=== PATIENT | female | born 1980 | race Caucasian/White ===

== ENCOUNTER 2020-01-26 14:12 | Inpatient (IN) | payer OTHER ==
[2020-01-26 15:40] LABS: Absolute Lymphocytes (CBC) 1.1 K/uL (0.7-4.9); Basophils % 0.5 % (0-1.3); Hematocrit 41.7 % (36.0-45.0); MPV 10.1 fL (7.6-11.3)
[2020-01-26 16:02] LABS: Blood Morphology Comment NOT SEEN (NOT SEEN); Platelet Estimate INCR; Platelets, Giant PRESENT; Urine White Blood Cell Casts OK
[2020-01-26 16:05] LABS: ALT/SGPT 20 U/L (12-78); Alkaline Phosphatase 84 U/L (45-117); BUN Blood Urea Nitrogen 7 mg/dL (7-18); Bicarbonate 24 mmol/L (21-32); Bilirubin Direct < 0.1 mg/dL (0-0.2); Bilirubin Total 0.5 mg/dL (0.2-1.0); Glucose Level 102 mg/dL (74-106); Lipase 108 U/L (73-393); Protein, Total 9.6 g/dL (6.4-8.2); Sodium Level 134 mmol/L (136-145)
[2020-01-26] MEDS ORDERED: ONDANSETRON 4 MG/2 ML VIAL ONE (16:06)
[2020-01-26] MEDS ORDERED: MORPHINE 2 MG/ML SYR ONE ×2 (16:06→19:27)
[2020-01-26] MEDS ORDERED: NA CHLORIDE 0.9% 1,000 ML ONE (16:14)
[2020-01-26 16:35] LABS: AST/SGOT 43 U/L (15-37); Potassium 4.4 mmol/L (3.5-5.1)
--- NOTE | 2020-01-26 17:02 | RAD REPORT ---
EXAM DESCRIPTION: CTAbdomen Pelvis W Contrast - 01/26/2020 4:48 pm CLINICAL HISTORY: Abdominal pain. ABD PAIN COMPARISON: No comparisons TECHNIQUE: Biphasic CT imaging of the abdomen and pelvis was performed with 100 ml non-ionic IV cont rast. All CT scans are performed using dose optimization technique as appropriate and may include automated exposure control or mA/KV adjustment according to patient size. FINDINGS: Small amount of endobronchial soft tissue material with linear opacities in the right lung base raise suspicion for and mild aspiration. The liver is normal sized without intrahepatic biliary dilatation or mass. The spleen, pancreas, adre nal glands and left kidney are within normal limits. Mild hydronephrosis and hydroureter is seen on t he right. Significant dilatation of the terminal ileum is seen which demonstrates fecalization. Several dilated lower abdominal small bowel loops seen with mild free fluid in the pelvis. The appendix measures 7- 8 and size and is not pathologically dilated. No evidence of significant lymphadenopathy. No suspicious bony findings. IMPRESSION: Multiple dilated small bowel loops in the inferior abdomen/ pelvis with prominent fecali zation of the terminal ileum compatible with moderate mechanical obstruction. Mild right hydronephrosis and hydroureter is likely caused by mass effect on the distal ureter by dil ated small bowel loops. Mild free fluid in the pelvis. Mild aspiration posterior right lower lobe.
--- NOTE | 2020-01-26 17:55 | EDPHYS ---
Physician Documentation [facility] Name: Evie Vinson Age: 39 yrs Sex: Female : 1980 Arrival Date: 01/26/2020 Time: 14:15 Bed 15 Private MD: EMMA Physician Benedict Bills HPI: 01/25 15:52 This 39 yrs old Female presents to ER via Wheelchair with complaints of sadie Abdominal Pain. 15:52 The patient presents with abdominal pain in the upper abdomen, in the lower abdomen, sadie abdominal distention in the upper abdomen, in the lower abdomen. Onset: The symptoms/episode began/occurred last night. The patient presents to the emergency department with nausea, abdominal pain, of the epigastric area, left upper quadrant, right lower quadrant and left lower quadrant. Onset: The symptoms/episode began/occurred last night. Possible causes: unknown. The symptoms are aggravated by nothing. The symptoms are alleviated by nothing. Associated signs and symptoms: The patient has no apparent associated signs or symptoms. Modifying factors: The symptoms are alleviated by nothing, the symptoms are aggravated by nothing. Historical: - Allergies: 14:35 PENICILLINS; ll1 - PSHx: 14:35 ; ll1 - Immunization history:: Adult Immunizations. - Social history:: Smoking status: Patient denies any tobacco usage or history of. Patient/guardian denies using alcohol, street drugs, tobacco products. - Family history:: not pertinent. ROS: 15:52 Constitutional: Negative for fever, chills, and weight loss, Eyes: Negative for injury, sadie pain, redness, and discharge, ENT: Negative for injury, pain, and discharge, Neck: Negative for injury, pain, and swelling, Cardiovascular: Negative for chest pain, palpitations, and edema, Respiratory: Negative for shortness of breath, cough, wheezing, and pleuritic chest pain, Back: Negative for injury and pain, : Negative for injury, bleeding, discharge, and swelling, MS/Extremity: Negative for injury and deformity, Skin: Negative for injury, rash, and discoloration, Neuro: Negative for headache, weakness, numbness, tingling, and seizure, Psych: Negative for depression, anxiety, suicide ideation, homicidal ideation, and hallucinations, Allergy/Immunology: Negative for hives, rash, and allergies, Endocrine: Negative for neck swelling, polydipsia, polyuria, polyphagia, and marked weight changes, Hematologic/Lymphatic: Negative for swollen nodes, abnormal bleeding, and unusual bruising. 15:52 Abdomen/GI: Positive for abdominal pain, nausea, diarrhea, abdominal cramps, of the epigastric area, left upper quadrant, right lower quadrant and left lower quadrant. Exam: 15:52 Constitutional: This is a well developed, well nourished patient who is awake, alert, sadie and in no acute distress. Head/Face: Normocephalic, atraumatic. Eyes: Pupils equal round and reactive to light, extra-ocular motions intact. Lids and lashes normal. Conjunctiva and sclera are non-icteric and not injected. Cornea within normal limits. Periorbital areas with no swelling, redness, or edema. ENT: Nares patent. No nasal discharge, no septal abnormalities noted. Tympanic membranes are normal and external auditory canals are clear. Oropharynx with no redness, swelling, or masses, exudates, or evidence of obstruction, uvula midline. Mucous membranes moist. Neck: Trachea midline, no thyromegaly or masses palpated, and no cervical lymphadenopathy. Supple, full range of motion without nuchal rigidity, or vertebral point tenderness. No Meningismus. Chest/axilla: Normal chest wall appearance and motion. Nontender with no deformity. No lesions are appreciated. Cardiovascular: Regular rate and rhythm with a normal S1 and S2. No gallops, murmurs, or rubs. Normal PMI, no JVD. No pulse deficits. Respiratory: Lungs have equal breath sounds bilaterally, clear to auscultation and percussion. No rales, rhonchi or wheezes noted. No increased work of breathing, no retractions or nasal flaring. Back: No spinal tenderness. No costovertebral tenderness. Full range of motion. Female : Normal external genitalia. Skin: Warm, dry with normal turgor. Normal color with no rashes, no lesions, and no evidence of cellulitis. MS/ Extremity: Pulses equal, no cyanosis. Neurovascular intact. Full, normal range of motion. Neuro: Awake and alert, GCS 15, oriented to person, place, time, and situation. Cranial nerves II-XII grossly intact. Motor strength 5/5 in all extremities. Sensory grossly intact. Cerebellar exam normal. Normal gait. Psych: Awake, alert, with orientation to person, place and time. Behavior, mood, and affect are within normal limits. 15:52 Abdomen/GI: Inspection: abdomen appears normal, Bowel sounds: normal, Palpation: moderate abdominal tenderness, in the epigastric area, left upper quadrant, right lower quadrant and left lower quadrant, Liver: no appreciated palpable abnormalities, Hernia: not appreciated. Vital Signs: 14:32 BP 140 / 93; Pulse 101; Resp 16; Temp 97.7; Pulse Ox 100% ; Weight 56.7 kg; Height 5 ll1 ft. 6 in. (167.64 cm); Pain 9/10; 15:43 BP 141 / 91; Pulse 74; Resp 16; Pulse Ox 100% ; sv 17:04 BP 136 / 85; Pulse 82; Resp 16; Pulse Ox 100% ; sv 18:00 BP 142 / 93; Pulse 98; Resp 16; Pulse Ox 100% ; sv 19:01 BP 144 / 91; Pulse 76; Resp 16; Pulse Ox 98% ; sv 20:19 BP 94 / 63; Pulse 75; Resp 16; Pulse Ox 94% on R/A; Pain 0/10; ao 14:32 Body Mass Index 20.18 (56.70 kg, 167.64 cm) ll1 MDM: 14:59 Patient medically screened. sadie 15:54 Data reviewed: vital signs, nurses notes, lab test result(s), radiologic studies, CT sadie scan. 15:55 Differential diagnosis: Nonspecific abd pain, gastritis, cholecystitis, pancreatitis, sadie diverticulitis, viral gastroenteritis, gastroenteritis, appendicitis, bowel obstruction, cholecystitis, Cholelithiasis, diverticulitis, Menorrhagia, non-specific abd pain. Data interpreted: lining stuffer: rate is 74 beats/min, rhythm is normal sinus rhythm, Pulse oximetry: on room air is 100 %. Test interpretation: by ED physician or midlevel provider:. Counseling: I had a detailed discussion with the patient and/or guardian regarding: the historical points, exam findings, and any diagnostic results supporting the discharge/admit diagnosis, lab results, radiology results. 01/25 15:13 Order name: Basic Metabolic Panel; Complete Time: 17:44 sv 01/25 15:13 Order name: CBC with Diff sv 01/25 15:13 Order name: Hepatic Function; Complete Time: 17:44 sv 06/16 15:13 Order name: Lipase; Complete Time: 17:44 sv 01/25 16:01 Order name: Urine --Ancillary (enter results) 01/25 16:01 Order name: Urine Dipstick--Ancillary (enter results) 01/25 15:52 Order name: CT Abd/Pelvis - IV Contrast Only; Complete Time: 17:41 [facility] 01/25 16:03 Order name: CBC Smear Scan EDMS 01/25 15:13 Order name: IV Saline Lock; Complete Time: 15:20 sv 01/25 15:13 Order name: Labs collected and sent; Complete Time: 15:20 sv 01/25 15:52 Order name: Urine Dipstick-Ancillary (obtain specimen); Complete Time: 15:58 [facility] 01/25 15:52 Order name: Urine Test (obtain specimen); Complete Time: 15:58 [facility] Administered Medications: 16:00 Drug: Zofran (Ondansetron) 4 mg Route: IVP; Site: right antecubital; sv 16:30 Follow up: Response: No adverse reaction sv 16:02 Drug: morphine 2 mg Route: IVP; Site: right antecubital; sv 16:30 Follow up: Response: No adverse reaction; RASS: Alert and Calm (0) sv 16:09 Drug: NS 0.9% 1000 ml Route: IV; Rate: 1 bolus; Site: right antecubital; sv 17:00 Follow up: Response: No adverse reaction; IV Status: Completed infusion; IV Intake: sv 1000ml 18:13 Drug: NS 0.9% 1000 ml Route: IV; Rate: 125 ml/hr; Site: right antecubital; sv 18:13 Drug: NS 0.9% 1000 ml Route: IV; Rate: 1 bolus; Site: right antecubital; sv 18:13 Drug: Pepcid 20 mg Route: IVP; Site: right antecubital; sv 18:18 Follow up: Response: No adverse reaction sv 18:15 Drug: Rocephin 1 grams Route: IV; Rate: per protocol; Site: right antecubital; sv 18:18 Follow up: Response: No adverse reaction; IV Status: Completed infusion; IV Intake: 10mlsv 18:18 Drug: Flagyl 500 mg Volume: 100 ml; Route: IVPB; Rate: 200 ml/hr; Infused Over: 30 sv mins; Site: right antecubital; 19:23 Drug: morphine 2 mg Route: IVP; Site: right antecubital; ao Disposition: 01/26/20 17:54 Hospitalization ordered by Jesse Aguilar for Inpatient Admission. Preliminary diagnosis are Pneumonia, unspecified organism - aspiration, right posterior base, Abdominal tenderness, Other intestinal obstruction - moderate mechanical small bowel. - Bed requested for Telemetry/MedSurg (Inpatient). - Status is Inpatient Admission. ao - Condition is Fair. - Problem is new. - Symptoms have improved. Signatures: Dispatcher [employer] EDMS Cintia Soler RN RN sv Anderson, Corey, MD MD cha Attema, Lee, LINEN ROOM ATTENDANT-C LINEN ROOM ATTENDANT-Cla1 Westley Woodruff RN RN Ravindra White RN RN ja1 Kenia Rogel Lynsay, RN RN ll1 Corrections: (The following items were deleted from the chart) 18:44 17:54 Hospitalization Ordered by Jesse Aguilar DO for Inpatient Admission. Preliminary eb diagnosis is Pneumonia, unspecified organism - aspiration, right posterior base; Abdominal tenderness; Other intestinal obstruction - moderate mechanical small bowel. Bed requested for Telemetry/MedSurg (Inpatient). Status is Inpatient Admission. Condition is Fair. Problem is new. Symptoms have improved. [facility] 18:44 18:44 01/26/2020 17:54 Hospitalization Ordered by Jesse Aguilar DO for Inpatient ja1 Admission. Preliminary diagnosis is Pneumonia, unspecified organism - aspiration, right posterior base; Abdominal tenderness; Other intestinal obstruction - moderate mechanical small bowel. Bed requested for Telemetry/MedSurg (Inpatient). Status is Inpatient Admission. Condition is Fair. Problem is new. Symptoms have improved. 18:44 18:44 01/26/2020 17:54 Hospitalization Ordered by Jesse Aguilar DO for Inpatient eb Admission. Preliminary diagnosis is Pneumonia, unspecified organism - aspiration, right posterior base; Abdominal tenderness; Other intestinal obstruction - moderate mechanical small bowel. Bed requested for Telemetry/MedSurg (Inpatient). Status is Inpatient Admission. Condition is Fair. Problem is new. Symptoms have improved. [facility] 21:13 18:44 01/26/2020 17:54 Hospitalization Ordered by Jesse Aguilar DO for Inpatient ao Admission. Preliminary diagnosis is Pneumonia, unspecified organism - aspiration, right posterior base; Abdominal tenderness; Other intestinal obstruction - moderate mechanical small bowel. Bed requested for Telemetry/MedSurg (Inpatient). Status is Inpatient Admission. Condition is Fair. Problem is new. Symptoms have improved. eb
--- NOTE | 2020-01-26 17:55 | ER ---
Nurse's Notes [facility] Name: Evie Vinson Age: 39 yrs Sex: Female : 1980 Arrival Date: 01/26/2020 Time: 14:15 Bed 15 Private MD: Diagnosis: Pneumonia, unspecified organism-aspiration, right posterior base;Abdominal tenderness;Other intestinal obstruction-moderate mechanical small bowel Presentation: 01/25 14:32 Chief complaint: Patient states: Lower abd pain with N/V since 2 am. + sweats and ll1 chills. No known fever. Coronavirus screen: Proceed with normal triage. Patient denies a cough. Patient denies shortness of breath or difficulty breathing. Patient denies measured and/or subjective temperature greater than 100.4F prior to today's visit. Patient denies travel on a cruise ship or to a country the [facility] currently lists as an affected area. Patient denies contact with known and/or suspected case of COVID-19. Ebola Screen: Patient denies travel to an Ebola-affected area in the 21 days before illness onset. Initial Sepsis Screen: Does the patient meet any 2 criteria? HR > 90 bpm. No. Patient's initial sepsis screen is negative. Risk Assessment: Do you want to hurt yourself or someone else? Patient reports no desire to harm self or others. Onset of symptoms was January 26, 2020. 14:32 Method Of Arrival: Wheelchair ll1 14:32 Acuity: NERY 3 ll1 15:25 Initial Sepsis Screen: Does the patient have a suspected source of infection? Yes: sv Acute abdominal pain. Historical: - Allergies: 14:35 PENICILLINS; ll1 - PSHx: 14:35 ; ll1 - Immunization history:: Adult Immunizations. - Social history:: Smoking status: Patient denies any tobacco usage or history of. Patient/guardian denies using alcohol, street drugs, tobacco products. - Family history:: not pertinent. Screenin:25 Abuse screen: Denies threats or abuse. Denies injuries from another. Nutritional sv screening: No deficits noted. Tuberculosis screening: No symptoms or risk factors identified. Fall Risk None identified. Assessment: 16:00 General: Appears in no apparent distress. uncomfortable, slender, well developed, sv Behavior is calm, cooperative, appropriate for age. General: Reports chills for 12-24 hours. Pain: Complains of pain in left lower quadrant and right lower quadrant Pain currently is 9 out of 10 on a pain scale. Pain began 0200 Is intermittent. Neuro: Level of Consciousness is awake, alert, obeys commands, Oriented to person, place, time, situation, Moves all extremities. Full function Gait is steady. Respiratory: Airway is patent Respiratory effort is even, unlabored, Respiratory pattern is regular, symmetrical. GI: Abdomen is flat, Reports lower abdominal pain, nausea, vomiting. Derm: Skin is intact, Skin is pink, warm \T\ dry. Musculoskeletal: Range of motion: limited in all extremities. 17:04 Reassessment: Patient appears in no apparent distress at this time. No changes from sv previously documented assessment. Patient and/or family updated on plan of care and expected duration. Pain level reassessed. Patient is alert, oriented x 3, equal unlabored respirations, skin warm/dry/pink. 18:10 Reassessment: Patient appears in no apparent distress at this time. Patient and/or sv family updated on plan of care and expected duration. Pain level reassessed. Patient is alert, oriented x 3, equal unlabored respirations, skin warm/dry/pink. Dr Anderson at the bedside. 19:10 Reassessment: Patient appears in no apparent distress at this time. Patient and/or ao family updated on plan of care and expected duration. Pain level reassessed. Recived report from Audra CAMARGO. Patient in room with no SS of ditress. 19:16 GI: Bowel sounds present X 4 quads. Abd is soft and non tender X 4 quads. ao 19:35 Reassessment: Medicated patient with Morphine 2 MG as ordered by physician. ao 20:16 Reassessment: Patient appears in no apparent distress at this time. Patient and/or ao family updated on plan of care and expected duration. Pain level reassessed. Patient is alert, oriented x 3, equal unlabored respirations, skin warm/dry/pink. 20:19 Reassessment: Called to give report and was told nurse will call back for report. ao Waiting on admitting nurse to call back for report. 20:51 Reassessment: Report given to RAMAN WOLFE. ao Vital Signs: 14:32 BP 140 / 93; Pulse 101; Resp 16; Temp 97.7; Pulse Ox 100% ; Weight 56.7 kg; Height 5 ll1 ft. 6 in. (167.64 cm); Pain 9/10; 15:43 BP 141 / 91; Pulse 74; Resp 16; Pulse Ox 100% ; sv 17:04 BP 136 / 85; Pulse 82; Resp 16; Pulse Ox 100% ; sv 18:00 BP 142 / 93; Pulse 98; Resp 16; Pulse Ox 100% ; sv 19:01 BP 144 / 91; Pulse 76; Resp 16; Pulse Ox 98% ; sv 20:19 BP 94 / 63; Pulse 75; Resp 16; Pulse Ox 94% on R/A; Pain 0/10; ao 14:32 Body Mass Index 20.18 (56.70 kg, 167.64 cm) ll1 ED Course: 14:15 Patient arrived in ED. as 14:34 Triage completed. ll1 14:35 Arm band placed on Patient notified of wait time. ll1 14:50 Patient has correct armband on for positive identification. Placed in gown. Bed in low mh5 position. Call light in reach. Side rails up X 1. Warm blanket given. Pillow given. Pulse ox on. NIBP on. 14:59 Benedict Bills MD is Attending Physician. [facility] 14:59 Cintia Soler, RAMAN is Primary Nurse. sv 15:20 Lipase Sent. mh5 15:20 Hepatic Function Sent. mh5 15:20 CBC with Diff Sent. 5 15:21 Basic Metabolic Panel Sent. 5 15:21 Initial lab(s) drawn, by pa, sent to lab. Urine collected: clean catch specimen, clear. 5 Inserted saline lock: 22 gauge in right antecubital area, using aseptic technique. Blood collected. 15:46 ED physician to see patient. sv 15:56 Radiology exam delayed due to test not completed at this time. vm2 16:04 Urine Dipstick--Ancillary (enter results) Sent. sv 16:04 Urine --Ancillary (enter results) Sent. sv 16:04 CT Abd/Pelvis - IV Contrast Only Sent. sv 16:48 CT Abd/Pelvis - IV Contrast Only In Process Unspecified. EDMS 17:09 Awaiting radiology results. sv 17:51 Jesse Aguilar DO is Hospitalizing Provider. sadie 18:41 Awaiting bed assignment. sv 19:07 Report given to Westley CAMARGO. sv 19:10 Primary Nurse role handed off by Cintia Soler RN sv 20:52 No provider procedures requiring assistance completed. Patient admitted, IV remains in ao place. Administered Medications: 16:00 Drug: Zofran (Ondansetron) 4 mg Route: IVP; Site: right antecubital; sv 16:30 Follow up: Response: No adverse reaction sv 16:02 Drug: morphine 2 mg Route: IVP; Site: right antecubital; sv 16:30 Follow up: Response: No adverse reaction; RASS: Alert and Calm (0) sv 16:09 Drug: NS 0.9% 1000 ml Route: IV; Rate: 1 bolus; Site: right antecubital; sv 17:00 Follow up: Response: No adverse reaction; IV Status: Completed infusion; IV Intake: sv 1000ml 18:13 Drug: NS 0.9% 1000 ml Route: IV; Rate: 125 ml/hr; Site: right antecubital; sv 18:13 Drug: NS 0.9% 1000 ml Route: IV; Rate: 1 bolus; Site: right antecubital; sv 18:13 Drug: Pepcid 20 mg Route: IVP; Site: right antecubital; sv 18:18 Follow up: Response: No adverse reaction sv 18:15 Drug: Rocephin 1 grams Route: IV; Rate: per protocol; Site: right antecubital; sv 18:18 Follow up: Response: No adverse reaction; IV Status: Completed infusion; IV Intake: 10mlsv 18:18 Drug: Flagyl 500 mg Volume: 100 ml; Route: IVPB; Rate: 200 ml/hr; Infused Over: 30 sv mins; Site: right antecubital; 19:23 Drug: morphine 2 mg Route: IVP; Site: right antecubital; ao Intake: 17:00 IV: 1000ml; Total: 1000ml. sv 18:18 IV: 10ml; Total: 1010ml. sv Outcome: 17:54 Decision to Hospitalize by Provider. sadie 20:52 Admitted to Med/surg accompanied by tech, room 218. ao 20:52 Condition: stable 20:52 Instructed on the need for admit. 21:13 Patient left the ED. ao Signatures: Dispatcher [employer] EDMS Cintia Soler RN RN sv Anderson, Corey, MD MD sadie Justin, Jeniffer Woodruff, Westley, RN RN Cinthia Bennett [address] [facility] Darryn Orantes RN RN ll1
[2020-01-26] MEDS ORDERED: METRONIDAZOLE 500mg IVPB 500 MG/100 ML BAG IV ONE (18:08)
[2020-01-26] MEDS ORDERED: NA CHLORIDE 0.9% 2,000 ML ONE (18:08)
[2020-01-26] MEDS ORDERED: CEFTRIAXONE/SWI 1gm 1 GM/10 ML SYR ONE (18:08)
[2020-01-26] MEDS ORDERED: FAMOTIDINE 20 MG/2 ML VIAL IV ONE (18:08)
--- NOTE | 2020-01-26 18:28 | P.HP ---
Certification for Inpatient Patient admitted to: Inpatient With expected LOS: >2 Midnights Patient will require the following post-hospital care: None Practitioner: I am a practitioner with admitting privileges, knowledge of patient current condition, hospital course, and medical plan of care. Services: Services provided to patient in accordance with Admission requirements found in Title 42 Section 412.3 of the Code of Federal Regulations <Neil Guzman Last Filed: 01/26/20 18:19> Patient admitted to: Inpatient <Fani Aguilarand - Last Filed: 01/26/20 18:36> Patient History Date of Service: 01/26/20 Primary Care Provider: none Reason for admission: Mechanical small bowel obstruction History of Present Illness: 39-year-old female with history of anemia, transposition of the great arteries, and multiple C-sections presents the emergency department with a 1-2 day history of abdominal pain, nausea, vomiting, diarrhea. During her evaluation in the emergency department patient is found to have a moderate mechanical small-bowel obstruction at the terminal ileum. ED provider wishes to admit patient for further evaluation and management this condition. Trial Surgery was consulted for this patient while in the emergency department. When I saw the patient in the emergency department she appeared uncomfortable. Vital signs within normal limits. Patient does not appear septic at this time. Patient will be admitted for further evaluation management condition. 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 - Family History Family History: Reviewed- Non-Contributory - Social History Smoking Status: Never smoker Alcohol use: Yes CD- Drugs: No Caffeine use: Yes Place of Residence: Home <Neil Guzman - Last Filed: 01/26/20 18:19> Date of Service: 01/26/20 History of Present Illness: Patient seen and examined. - Family History Family History: Reviewed- Non-Contributory <Jesse Aguilar - Last Filed: 01/26/20 18:36> Review of Systems General: Unremarkable Eyes: Unremarkable ENT: Unremarkable Respiratory: Unremarkable Cardiovascular: Unremarkable Gastrointestinal: Nausea, Vomiting, Abdominal Pain Genitourinary: Unremarkable Musculoskeletal: Unremarkable Integumentary: Unremarkable Neurological: Unremarkable Lymphatics: Unremarkable <Neil Guzman - Last Filed: 01/26/20 18:19> Physical Examination - Physical Exam General: Alert, In no apparent distress, Oriented x3 HEENT: Atraumatic, Normocephalic Neck: Supple Respiratory: Clear to auscultation bilaterally, Normal air movement Cardiovascular: No edema, Normal pulses Capillary refill: <2 Seconds Gastrointestinal: Hyperactive, Tenderness (Moderate generalized abdominal tenderness) Musculoskeletal: No erythema, No tenderness, No warmth Integumentary: No significant lesion, No erythema Neurological: Normal speech, Normal tone, Normal affect - Studies Laboratory Data (last 24 hrs) 01/26/20 15:10: WBC 11.6 H, Hgb 13.1, Hct 41.7, Plt Count 508 H 01/26/20 15:10: Sodium 134 L, Potassium 4.4, BUN 7, Creatinine 0.92, Glucose 102, Total Bilirubin 0.5, AST 43 H, ALT 20, Alkaline Phosphatase 84, Lipase 108 <Neil Guzman - Last Filed: 01/26/20 18:19> - Studies Laboratory Data (last 24 hrs) 01/26/20 15:10: WBC 11.6 H, Hgb 13.1, Hct 41.7, Plt Count 508 H 01/26/20 15:10: Sodium 134 L, Potassium 4.4, BUN 7, Creatinine 0.92, Glucose 102, Total Bilirubin 0.5, AST 43 H, ALT 20, Alkaline Phosphatase 84, Lipase 108 <Jesse Aguilar - Last Filed: 01/26/20 18:36> Assessment and Plan - Plan Assessment Moderate mechanical small bowel obstruction Iron-deficiency anemia 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 Will provide patient with pain medication, nausea medication, and IV fluids. General Surgery has seen this patient. Will continue with IV antibiotics. Will place NG tube as necessary for nausea and vomiting. DVT prophylaxis with Lovenox 40 mg subcutaneous daily. Will continue to monitor patient closely with serial abdominal exams. Will obtain repeat labs in the morning. Appreciate further input from general surgery. Iron-deficiency anemia: H&H stable at this time. Will continue to monitor with daily labs. 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 Patient saw her director child in 2017 and was stable at that time. Patient due to see Cardiology on an outpatient basis in the next 2 years. - Advance Directives Does patient have a Living Will: No Does patient have a Durable POA for Healthcare: No - Code Status/Comfort Care Code Status Assessed: Yes (Patient is full code) Critical Care: No Time Spent Managing Pts Care (In Minutes): 55 <Neil Guzman - Last Filed: 01/26/20 18:19> - Plan Patient seen and examined. Agree with plan of care by nurse practitioner. Care discussed with surgery. Will provide IV pain medication, IV fluids. May require NG tube if with increased nausea and vomiting. Will continue to monitor closely. Anticipate improvement over the next 2-4 days. If patient does not improve patient will likely require intervention/surgery. Discharge Plan: Home Plan to discharge in: Greater than 2 days <Jesse Aguilar - Last Filed: 01/26/20 18:36>
[2020-01-26 18:58] LABS: Urine Blood TRACE (NEG); Urine Glucose NEGATIVE (NEG); Urine Protein 2+ (NEG); Urine Specific Gravity 1.015 (1.005-1.030); Urine pH 8.5 (5.0-7.0)
--- NOTE | 2020-01-26 20:23 | CON ---
Date of Consultation: 01/26/2020 Diagnosis: Small bowel obstruction. History Of Present Illness: This is the case of a 39-year-old patient, who comes to us with abdomina l pain and bloating, found out to have bowel obstruction. Surgical consult was obtained. She denies any trauma, any dysuria, hematuria, hematochezia, or melena. Denies any recent traveling out of the country. Denies any family member sick at home. The patient states she has on and off episode like this where she get all bloated and then she let the bowel rest and then improve. This time did not improve that is why she came to the ER. She has 2 sections in the past, but no other abdomi nal surgeries. She denies any melena, denies any change in bowel habits. Review of Systems: Ten points otherwise unremarkable. Allergies: PENICILLIN. Surgeries: C-sections. Social History: She does not smoke. She does not drink alcohol. Family History: Noncontributory. Physical Examination: General: Patient is awake and alert. HEENT: Pupils are equal and reactive, anicteric. Neck: Supple. Chest: Clear. Abdomen: Soft and depressible. Mildly distended, mild tenderness. Rectal: Deferred. Breasts: Deferred. Pelvic: Deferred. Extremities: Good capillary refill. Laboratory Data: Blood work shows WBC count of 11.6, hemoglobin of 13.1 with a chloride of 100. UA is pending. Imaging Procedure: CAT scan of abdomen and pelvis interpreted by Dr. Beasley as multiple dilated small bowel loops in the inferior abdomen with prominent fecalization of the terminal ileum compatible with moderate mechanical obstruction. Patient also has mild right hydronephrosis and right hydroureter. Patient also has mild aspiration of posterior right lower lobe. This is by CAT scan by Dr. Beasley. Assessment: This is a 39-year-old patient comes to us with bowel obstruction. Patient was fully exp lained the options of laparotomy with possible bowel resection, possible ostomy with benefits, altern atives, and risks including, but not limited to infection, bleeding, damage to adjacent structures, a nesthesia complications, CT and even . She also understands about the process of the bowel rest and she wanted to try conservative treatment at this moment and learnt that if she does develop david tonitis we are just going to be there with her and support her. If the obstruction does not resolve in the next 48 to 72 hours, she may have to reconsider again surgical intervention. We encouraged am bulation. We also discussed with her the importance of diet to minimize chances of bowel obstruction in the future. We also encouraged her to follow up with her cutter operator tile. We will follow the patient with you and give more recommendations as the case develops. MIRELLA/JEROME Voice ID: [id number] Report ID: [id number]
[2020-01-26 21:34] VITALS: BMI 20.8
[2020-01-26] MEDS: NA CHLORIDE 0.9% 1,000 ML IV SCH (21:43)
[2020-01-26] MEDS ORDERED: ACETAMINOPHEN 500 MG TAB PO PRN (21:43)
[2020-01-26] MEDS ORDERED: SODIUM CHLORIDE 0.9% 10ML INJ IV PRN (21:43)
[2020-01-26] MEDS: PANTOPRAZOLE 40 MG INJ IVP SCH (22:55)
[2020-01-26] MEDS: PROMETHAZINE INJ 25 MG/ML AMP IV PRN (22:55)
[2020-01-26] MEDS: MORPHINE 2 MG/ML SYR IV PRN (22:56)
[2020-01-27] MEDS: METRONIDAZOLE 500mg IVPB 500 MG/100 ML BAG IV SCH ×3 (00:18→17:03)
[2020-01-27 02:19] VITALS: O2SAT 98
[2020-01-27] MEDS: PROMETHAZINE INJ 25 MG/ML AMP IV PRN ×4 (02:25→20:42)
[2020-01-27] MEDS: MORPHINE 2 MG/ML SYR IV PRN ×4 (02:26→20:42)
[2020-01-27 04:16] LABS: Absolute Lymphocytes (CBC) 1.7 K/uL (0.7-4.9); Basophils % 1.1 % (0-1.3); Hematocrit 31.4 % (36.0-45.0); Lymphocytes % 17.1 % (15.3-44.8); MPV 9.6 fL (7.6-11.3); RBC Red Blood Cell Count 4.31 M/uL (3.86-4.86)
[2020-01-27 04:29] LABS: BUN Blood Urea Nitrogen 5 mg/dL (7-18); Bicarbonate 23 mmol/L (21-32); Glucose Level 100 mg/dL (74-106); Potassium 3.4 mmol/L (3.5-5.1); Sodium Level 141 mmol/L (136-145)
[2020-01-27] MEDS: KCL 20 MEQ/100 mL IVPB 20 MEQ/100 ML BAG IV SCH ×2 (05:07→08:47)
[2020-01-27] MEDS: NA CHLORIDE 0.9% 1,000 ML IV SCH (05:08)
[2020-01-27] MEDS: PANTOPRAZOLE 40 MG INJ IVP SCH ×2 (08:47→20:41)
[2020-01-27] MEDS ORDERED: MORPHINE 2 MG/ML SYR IV ONE (08:59)
[2020-01-27] MEDS ORDERED: CEFTRIAXONE/SWI 1gm 1 GM/10 ML SYR IVP SCH (09:00)
[2020-01-27] MEDS: ONDANSETRON 4 MG/2 ML VIAL IV PRN ×2 (09:04→17:01)
--- NOTE | 2020-01-27 10:22 | RAD REPORT ---
EXAM DESCRIPTION: RAD - Abdomen Single View - 01/27/2020 10:11 am CLINICAL HISTORY: SBO Pain COMPARISON: Abdomen Pelvis W Contrast dated 01/26/2020 FINDINGS: Prominence of the small bowel inferiorly in the abdomen is again seen. Overall, there has been mild improvement in the small bowel obstruction pattern since the comparative CT. No free air se en. No significant bony findings. IMPRESSION: Mild improvement in bowel-gas pattern since comparative CT imaging.
[2020-01-27] MEDS: ENOXAPARIN 40 MG/0.4 ML SQ SCH (11:15)
--- NOTE | 2020-01-27 12:59 | PN ---
Date of Progress Note: 01/27/2020 Reason For Service: Small bowel obstruction. History: Patient is stable. She does not feel a lot better as she is still little bit nauseous. No vomiting. No flatus. No bowel movement. Review of Systems: Ten points otherwise unremarkable. Physical Examination: General: Patient is awake and alert, in no distress still no appetite. Abdomen: Soft and depressible. Mildly distended. No guarding, no rebound. Extremities: Good capillary refill. Laboratory Data: WBC count is 9.7. X-ray of the abdomen and pelvis today shows mild improvement in the pattern. Plan: We are going to just give her a clear liquid diet. We will not advance right now until the ne xt 24 hours and see how she improves and if she is passing any gas. We encouraged ambulation. MIRELLA/JEROME Voice ID: [id number] Report ID: [id number]
--- NOTE | 2020-01-27 13:23 | P.PN ---
Subjective Date of Service: 01/27/20 Primary Care Provider: none Chief Complaint: Mechanical small bowel obstruction Subjective: No new changes Patient still if it will, having abdominal pain and nausea. Patient has not passed any gas or had a bowel movement. <Neil Guzman - Last Filed: 01/27/20 13:24> Date of Service: 01/27/20 Patient seen examined in the morning as well in the afternoon as the patient was requiring more pain medication. Agree with plan of care by nurse practitioner. <Jesse Aguilar - Last Filed: 01/27/20 16:58> Review of Systems General: Unremarkable Eyes: Unremarkable ENT: Unremarkable Respiratory: Unremarkable Cardiovascular: Unremarkable Gastrointestinal: Nausea, Abdominal Pain, As per HPI Genitourinary: Unremarkable Musculoskeletal: Unremarkable Integumentary: Unremarkable Neurological: Unremarkable Lymphatics: Unremarkable <Neil Guzman - Last Filed: 01/27/20 13:24> Physical Examination - Vital Signs Temperature: 98.7 F Blood Pressure: 135/80 Pulse: 93 Respirations: 16 Pulse Ox (%): 99 - Physical Exam General: Alert, In no apparent distress, Oriented x3 HEENT: Atraumatic, Normocephalic Neck: Supple Respiratory: Clear to auscultation bilaterally, Normal air movement Cardiovascular: Regular rate/rhythm, Normal S1 S2 Capillary refill: <2 Seconds Gastrointestinal: Hypoactive, Soft and benign, Tenderness (Moderate generalized abdominal tenderness) Musculoskeletal: No contractures, No erythema Integumentary: No significant lesion, No erythema Neurological: Normal speech, Normal tone, Normal affect Lymphatics: No axilla or inguinal lymphadenopathy - Studies Laboratory Data (last 24 hrs) 01/26/20 15:10: WBC 11.6 H, Hgb 13.1, Hct 41.7, Plt Count 508 H 01/26/20 15:10: Sodium 134 L, Potassium 4.4, BUN 7, Creatinine 0.92, Glucose 102, Total Bilirubin 0.5, AST 43 H, ALT 20, Alkaline Phosphatase 84, Lipase 108 <Neil Guzman - Last Filed: 01/27/20 13:24> - Physical Exam Gastrointestinal: Hypoactive, Other (Tender throughout but greater to the right lower quadrant. 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 Patient does not report any vomiting at this time. Patient has not passed any gas or had a bowel movement. Patient is still NPO, will keep diet as NPO until surgery advances. Hemoglobin noted to have dropped 4 points, white blood cell count within normal limits. Abdominal x-ray from this morning shows mild improvement in small bowel obstruction pattern. Will continue with NPO diet, IV fluids, pain and nausea medication as needed overnight and reassess in the morning. Appreciate further input from surgery. Iron-deficiency anemia: Will continue to monitor with daily labs. 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 Patient due to see Cardiology on an outpatient basis in the next 2 years. Critical Care: No Time Spent Managing Pts Care (In Minutes): 55 <Neil Guzman - Last Filed: 01/27/20 13:24> Discharge Plan: Home Plan to discharge in: Greater than 2 days Physician Review Additional Text: Patient examined and evaluated. Agree with evaluation, assessment and plan of care. Also discuss case with surgery who has seen the patient are ready. Due to increasing pain well increase pain medication. Will have surgery re-evaluate patient now. Will keep the patient NPO at this time. Patient with fever. Will need to monitor her closely. If symptoms worsen patient may require surgery. <Jesse Aguilar - Last Filed: 01/27/20 16:58>
[2020-01-27] MEDS ORDERED: FENTANYL CITR 100 MCG/2 ML IV ONE (15:25)
[2020-01-27] MEDS ORDERED: ACETAMINOPHEN 650MG/RECT SUPP PR PRN (16:50)
[2020-01-27] MEDS ORDERED: MORPHINE 4 MG/ML SYR IV ONE (17:00)
[2020-01-27] MEDS ORDERED: KCL 20 MEQ/100 mL IVPB 20 MEQ/100 ML BAG IV SCH (17:00)
[2020-01-27] MEDS: Levofloxacin500mg IV 500 MG/100 ML BAG IV SCH (17:58)
[2020-01-27] MEDS: D5 0.9 NS 1,000 ML IV SCH (17:58)
[2020-01-27 18:32] LABS: Absolute Lymphocytes (CBC) 0.9 K/uL (0.7-4.9); Basophils % 0.7 % (0-1.3); Hematocrit 35.2 % (36.0-45.0); Lymphocytes % 6.2 % (15.3-44.8); MPV 9.4 fL (7.6-11.3); RBC Red Blood Cell Count 4.86 M/uL (3.86-4.86)
[2020-01-27 22:18] LABS: Blood Morphology Comment NOT SEEN (NOT SEEN); Platelet Estimate ADEQ; Urine White Blood Cell Casts OK
[2020-01-28] MEDS: METRONIDAZOLE 500mg IVPB 500 MG/100 ML BAG IV SCH ×3 (00:47→16:46)
[2020-01-28] MEDS: D5 0.9 NS 1,000 ML IV SCH ×4 (00:48→22:38)
[2020-01-28] MEDS: PROMETHAZINE INJ 25 MG/ML AMP IV PRN (03:42)
[2020-01-28 05:40] LABS: Absolute Lymphocytes (CBC) 1.5 K/uL (0.7-4.9); Basophils % 0.8 % (0-1.3); Hematocrit 30.5 % (36.0-45.0); Lymphocytes % 14.2 % (15.3-44.8); MPV 9.6 fL (7.6-11.3); RBC Red Blood Cell Count 4.25 M/uL (3.86-4.86)
[2020-01-28 05:47] LABS: ALT/SGPT 9 U/L (12-78); AST/SGOT 9 U/L (15-37); Albumin 2.4 g/dL (3.4-5.0); Alkaline Phosphatase 54 U/L (45-117); BUN Blood Urea Nitrogen 4 mg/dL (7-18); Bicarbonate 24 mmol/L (21-32); Bilirubin Total 0.2 mg/dL (0.2-1.0); Glucose Level 130 mg/dL (74-106); Magnesium 2.1 mg/dL (1.8-2.4); Potassium 3.3 mmol/L (3.5-5.1); Protein, Total 5.8 g/dL (6.4-8.2); Sodium Level 140 mmol/L (136-145)
[2020-01-28] MEDS ORDERED: POTASSIUM CL 40 MEQ in NA CHLORIDE 0.9% 500 ML IV SCH (08:00)
[2020-01-28] MEDS: PANTOPRAZOLE 40 MG INJ IVP SCH ×2 (08:57→22:38)
[2020-01-28] MEDS: ONDANSETRON 4 MG/2 ML VIAL IV PRN (08:57)
[2020-01-28] MEDS: MORPHINE 2 MG/ML SYR IV PRN ×2 (08:57→13:20)
[2020-01-28] MEDS: ENOXAPARIN 40 MG/0.4 ML SQ SCH (08:58)
--- NOTE | 2020-01-28 13:45 | P.PN ---
Subjective Date of Service: 01/28/20 Primary Care Provider: none Chief Complaint: Mechanical small bowel obstruction Patient now with flatus, no BM yet, pain has improved greatly. <Neil Guzman - Last Filed: 01/28/20 13:40> Date of Service: 01/28/20 <Jesse Aguilar - Last Filed: 01/28/20 16:44> Review of Systems General: Unremarkable Eyes: Unremarkable ENT: Unremarkable Respiratory: Unremarkable Cardiovascular: Unremarkable Gastrointestinal: Abdominal Pain, Constipation Genitourinary: Unremarkable Musculoskeletal: Unremarkable Integumentary: Unremarkable Neurological: Unremarkable Lymphatics: Unremarkable <VasiliybrianNeil - Last Filed: 01/28/20 13:40> Physical Examination - Vital Signs Temperature: 98.1 F Blood Pressure: 125/79 Pulse: 88 Respirations: 16 Pulse Ox (%): 97 - Physical Exam General: Alert, In no apparent distress, Oriented x3 HEENT: Atraumatic, Normocephalic Neck: Supple Respiratory: Clear to auscultation bilaterally, Normal air movement Cardiovascular: No edema, Normal pulses, Regular rate/rhythm Capillary refill: <2 Seconds Gastrointestinal: Normal bowel sounds, Hypoactive, Tenderness (Mild generalized abdominal tenderness, mild distention) Musculoskeletal: No erythema, No tenderness, No warmth Integumentary: No erythema, No warmth Neurological: Normal speech, Normal tone, Normal affect - Studies Medications List Reviewed: Yes <Neil Guzman - Last Filed: 01/28/20 13:40> Assessment & Plan Discharge Plan: Home Plan to discharge in: 48 Hours - Code Status/Comfort Care Code Status Assessed: Yes (Patient is full code) Physician Review Additional Text: Assessment Moderate mechanical small bowel obstruction Right-sided hydronephrosis likely secondary to mechanical small bowel obstruction Iron-deficiency anemia 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 Patient reports that she has not had much abdominal pain since last night around 8 o'clock. Patient has remained afebrile since last night. General surgery evaluated the patient today and ordered repeat abdominal x-ray. If x-ray is normal surgery plans to advance diet to clear liquids to see how patient does with this. Anticipate clinical improvement next 24-48 hr. Right-sided hydronephrosis likely secondary to mechanical small bowel obstruction: Will obtain renal ultrasound to evaluate for right-sided hydronephrosis. Kidney function has remained stable during this hospitalization. If at discharge patient is still with hydronephrosis right kidney function remains well patient will need to follow up on outpatient basis with urology. Will followup results from renal ultrasound and monitor kidney function. Iron-deficiency anemia: Will continue to monitor with daily labs. 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 Patient due to see Cardiology on an outpatient basis in the next 2 years. Critical Care: No Time Spent Managing Pts Care (In Minutes): 55 <Neil Guzman - Last Filed: 01/28/20 13:40> Physician Review Additional Text: Patient seen and examined. Agree with plan of care. Patient overall improved. Continue with pain control. X-ray showed improvement. Surgery plans to give a trial of clear liquids. <Jesse Aguilar - Last Filed: 01/28/20 16:44>
--- NOTE | 2020-01-28 15:09 | RAD REPORT ---
EXAM DESCRIPTION: RAD - Abdomen Single View - 01/28/2020 2:53 pm CLINICAL HISTORY: Abdominal pain FINDINGS: Small bowel caliber has diminished. Several loops of small bowel are now only mildly dilat ed. Small amount air is present within the colon The small bowel obstruction has improved
--- NOTE | 2020-01-28 15:27 | RAD REPORT ---
EXAM DESCRIPTION: US - Renal Ultrasound-Complete - 01/28/2020 3:10 pm CLINICAL HISTORY: . Abdominal pain COMPARISON: January 26, 2020 cat FINDINGS: The right kidney measures 10 cm with a normal echotexture. The left kidney measures 10 cm with a normal echotexture. Hydronephrosis is not seen. No gross abnormality of bladder IMPRESSION: Mild right hydronephrosis has resolved
[2020-01-28] MEDS: Levofloxacin500mg IV 500 MG/100 ML BAG IV SCH (18:25)
[2020-01-29] MEDS: METRONIDAZOLE 500mg IVPB 500 MG/100 ML BAG IV SCH ×2 (00:22→09:00)
[2020-01-29] MEDS: D5 0.9 NS 1,000 ML IV SCH ×2 (02:00→09:09)
[2020-01-29 05:58] LABS: ALT/SGPT 10 U/L (12-78); AST/SGOT 9 U/L (15-37); Albumin 2.6 g/dL (3.4-5.0); Alkaline Phosphatase 53 U/L (45-117); BUN Blood Urea Nitrogen 2 mg/dL (7-18); Bicarbonate 26 mmol/L (21-32); Bilirubin Total 0.2 mg/dL (0.2-1.0); Glucose Level 110 mg/dL (74-106); Magnesium 1.8 mg/dL (1.8-2.4); Potassium 3.3 mmol/L (3.5-5.1); Sodium Level 142 mmol/L (136-145)
[2020-01-29] MEDS ORDERED: POTASSIUM CL SA 10 MEQ TAB PO ONE (06:06)
[2020-01-29] MEDS ORDERED: MAGNESIUM SULFATE 1 gm IVPB 1 GM/100 ML BAG IV ONE (06:07)
[2020-01-29] MEDS: ENOXAPARIN 40 MG/0.4 ML SQ SCH (09:01)
[2020-01-29] MEDS: PANTOPRAZOLE 40 MG INJ IVP SCH (09:01)
--- NOTE | 2020-01-29 11:27 | P.PN ---
Subjective Date of Service: 01/29/20 Primary Care Provider: none Chief Complaint: Mechanical small bowel obstruction Subjective: Tolerating diet, Ambulating, Improving Patient now with flatus, no BM yet, pain continues to improve. Review of Systems General: Unremarkable Eyes: Unremarkable ENT: Unremarkable Respiratory: Unremarkable Cardiovascular: Unremarkable Gastrointestinal: Abdominal Pain Genitourinary: Unremarkable Musculoskeletal: Unremarkable Neurological: Unremarkable Lymphatics: Unremarkable Physical Examination - Vital Signs Temperature: 97.9 F Blood Pressure: 119/74 Pulse: 83 Respirations: 17 Pulse Ox (%): 98 - Physical Exam General: Alert, In no apparent distress, Oriented x3 HEENT: Atraumatic, Normocephalic Neck: Supple Respiratory: Clear to auscultation bilaterally, Normal air movement Cardiovascular: Normal pulses, Regular rate/rhythm, Normal S1 S2 Capillary refill: <2 Seconds Gastrointestinal: Normal bowel sounds, Non-distended, Tenderness (Mild abdominal tenderness) Musculoskeletal: No erythema, No tenderness Integumentary: No erythema, No warmth Neurological: Normal speech, Normal tone, Normal affect - Studies Medications List Reviewed: Yes Assessment & Plan Discharge Plan: Home Plan to discharge in: 24 Hours - Code Status/Comfort Care Code Status Assessed: Yes (Patient is full code) Physician Review Additional Text: Assessment Moderate mechanical small bowel obstruction Right-sided hydronephrosis likely secondary to mechanical small bowel obstruction Iron-deficiency anemia 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 Patient reports she is having flatus, but no bowel movement yet. Patient has remained afebrile, H&H is stable. Patient is also tolerating her clear liquid diet. Anticipate re-evaluation by general surgeon today and possible discharge as early as tonight the possibly tomorrow. Right-sided hydronephrosis likely secondary to mechanical small bowel obstruction: Right-sided hydronephrosis has resolved. 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 Patient due to see Cardiology on an outpatient basis in the next 2 years. Critical Care: No Time Spent Managing Pts Care (In Minutes): 55
[2020-01-29 12:13] VITALS: BP 131/85; TEMP 98.3
--- NOTE | 2020-01-29 12:57 | P.PN ---
Subjective Date of Service: 01/28/20 Primary Care Provider: none Chief Complaint: Mechanical small bowel obstruction Subjective: Improving Review of Systems General: Fever (nnnnnnnnnnno) Eyes: Pain (no) Respiratory: Cough (no) Gastrointestinal: Nausea (no), Vomiting (no), Distention, As per HPI Genitourinary: Dysuria (no), Urgency (no), Hematuria (no) Physical Examination - Vital Signs Temperature: 98.3 F Blood Pressure: 131/85 Pulse: 81 Respirations: 17 Pulse Ox (%): 100 - Physical Exam General: Alert, Oriented x3, Cooperative HEENT: PERRLA Neck: Supple Gastrointestinal: Hypoactive, No rebound, No guarding - Studies Imagings Data: improved Medications List Reviewed: Yes Assessment And Plan - Plan oob clears
--- NOTE | 2020-01-29 13:04 | P.DS ---
Admission Date: 01/26/20 Discharge Date: 01/29/20 Primary Care Provider: none Disposition: ROUTINE DISCHARGE Discharge Condition: GOOD Reason for Admission: Mechanical small bowel obstruction Consultations: Surgery-Dr. Anderson Procedures: CT Scan: FINDINGS: Small amount of endobronchial soft tissue material with linear opacities in the right lung base raise suspicion for and mild aspiration. The liver is normal sized without intrahepatic biliary dilatation or mass. The spleen, pancreas, adrenal glands and left kidney are within normal limits. Mild hydronephrosis and hydroureter is seen on the right. Significant dilatation of the terminal ileum is seen which demonstrates fecalization. Several dilated lower abdominal small bowel loops seen with mild free fluid in the pelvis. The appendix measures 7-8 and size and is not pathologically dilated. No evidence of significant lymphadenopathy. No suspicious bony findings. IMPRESSION: Multiple dilated small bowel loops in the inferior abdomen/ pelvis with prominent fecalization of the terminal ileum compatible with moderate mechanical obstruction. Mild right hydronephrosis and hydroureter is likely caused by mass effect on the distal ureter by dilated small bowel loops. Mild free fluid in the pelvis. Mild aspiration posterior right lower lobe. ABUS: FINDINGS: Small bowel caliber has diminished. Several loops of small bowel are now only mildly dilated. Small amount air is present within the colon The small bowel obstruction has improved Renal US: COMPARISON: January 26, 2020 ct FINDINGS: The right kidney measures 10 cm with a normal echotexture. The left kidney measures 10 cm with a normal echotexture. Hydronephrosis is not seen. 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 CT scan revealed multiple dilated small bowel loops in the inferior abdomen and pelvis suspect moderate mechanical obstruction. Right hydronephrosis noted. Patient admitted for further evaluation and treatment. Hospital Course: Patient presented with abdominal pain, nausea and vomiting secondary to moderate mechanical small bowel obstruction. CT scan revealed multiple dilated small nalini wel loops in the inferior abdominal area and pelvis with prominent fecalization of the terminal ileum. Mild right hydronephrosis and hydroureter was also noted. This was likely related to mass effect of the dilated small bowel loops. Patient seen and evaluated by surgery. No surgical intervention was required. Patient given IV fluids, antibiotics and pain control. Her condition improved. Repeat abdominal ultrasound showed improvement. Renal ultrasound showed that the hydronephrosis had resolved. At discharge patient able the tolerate a diet. She is without any significant abdominal pain, nausea vomiting. Surgery recommends discharge at this time. Patient will continue with Levaquin 500 mg daily and Flagyl 500 mg 3 times a day for 3 more days. Surgery recommends to continue a full liquid diet then advance to pureed then to regular over the next week. Recommend follow up in 1 week with surgery. Patient will require colonoscopy in the near future. This can be further evaluated and assessed by surgery. If pain increases she is to return to the hospital. Patient with history of iron deficiency anemia. Patient may continue with multi vitamin with iron at home. Recommend recheck CBC in 2-4 weeks. 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 This remained stable. Patient on control. She may continue with this medication. Recommend to use condoms and safe sex practices for at least 1 month since the patient will be on antibiotic therapy.. Vital Signs/Physical Exam: Temp Pulse Resp BP Pulse Ox 98.3 F 81 17 131/85 100 01/29/20 12:57 01/29/20 12:57 01/29/20 12:57 01/29/20 12:57 01/29/20 12:57 General: Alert, In no apparent distress, Oriented x3, Cooperative HEENT: Atraumatic Neck: Supple Respiratory: Clear to auscultation bilaterally, Normal air movement Cardiovascular: Normal pulses, Regular rate/rhythm Gastrointestinal: Normal bowel sounds, Soft and benign, Non-distended, No tenderness, No masses, No rebound, No guarding Musculoskeletal: No erythema, No tenderness, No warmth Integumentary: No tenderness/swelling, No erythema, No warmth, No cyanosis Neurological: Normal speech, Normal strength at 5/5 x4 extr, Normal tone, Normal affect Laboratory Data at Discharge: WBC 10.8 K/uL (4.3-10.9) D 01/28/20 05:12 Hgb 9.6 g/dL (12.0-15.0) L 01/28/20 05:12 Hct 30.5 % (36.0-45.0) L 01/28/20 05:12 Plt Count 346 K/uL (152-406) 01/28/20 05:12 Sodium 142 mmol/L (136-145) 01/29/20 05:17 Potassium 3.3 mmol/L (3.5-5.1) L 01/29/20 05:17 BUN 2 mg/dL (7-18) L 01/29/20 05:17 Creatinine 0.64 mg/dL (0.55-1.3) 01/29/20 05:17 Glucose 110 mg/dL (74-106) H 01/29/20 05:17 Magnesium 1.8 mg/dL (1.8-2.4) 01/29/20 05:17 Total Bilirubin 0.2 mg/dL (0.2-1.0) 01/29/20 05:17 AST 9 U/L (15-37) L 01/29/20 05:17 ALT 10 U/L (12-78) L 01/29/20 05:17 Alkaline Phosphatase 53 U/L (45-117) 01/29/20 05:17 Lipase 108 U/L (73-393) 01/26/20 15:10 Home Medications: Lessina 1 tab PO DAILY 01/27/20 levoFLOXacin [Levaquin*] 500 mg PO 1700 #3 tab 01/29/20 metroNIDAZOLE [Flagyl*] 500 mg PO TID #6 tablet 01/29/20 New Medications: metroNIDAZOLE [Flagyl*] 500 mg PO TID #6 tablet levoFLOXacin [Levaquin*] 500 mg PO 1700 #3 tab Patient Discharge Instructions: 1. Recommend follow up with PCP in 1 week to follow up this hospitalization. 2. Patient presented with abdominal pain, nausea and vomiting secondary to moderate mechanical small bowel obstruction. CT scan revealed multiple dilated small bowel loops in the inferior abdominal area and pelvis with prominent fecalization of the terminal ileum. Mild right hydronephrosis and hydroureter was also noted. This was likely related to mass effect of the dilated small bowel loops. Patient seen and evaluated by surgery. No surgical intervention was required. Patient given IV fluids, antibiotics and pain control. Her condition improved. Repeat abdominal ultrasound showed improvement. Renal ultrasound showed that the hydronephrosis had resolved. At discharge patient able the tolerate a diet. She is without any significant abdominal pain, nausea vomiting. Surgery recommends discharge at this time. Patient will continue with Levaquin 500 mg daily and Flagyl 500 mg 3 times a day for 3 more days. Surgery recommends to continue a full liquid diet then advance to pureed then to regular over the next week. Recommend follow up in 1 week with surgery. Patient will require colonoscopy in the near future. This can be further evaluated and assessed by surgery. If pain increases she is to return to the hospital. 3. Patient with history of iron deficiency anemia. Patient may continue with multi vitamin with iron at home. Recommend recheck CBC in 2-4 weeks. 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 This remained stable. 4. Patient on control. She may continue with this medication. Recommend to use condoms and safe sex practices for at least 1 month since the patient will be on antibiotic therapy.. Diet: Full liquid then advance to Pureed then Regular Activity: Ad ashley Time spent managing pt's care (in minutes): 55
[2020-01-29] MEDS ORDERED: metroNIDAZOLE 500 MG TABLET PO SCH (14:00)
--- NOTE | 2020-01-29 15:34 | PN ---
Date of Progress Note: 01/29/2020 Diagnosis: Small bowel obstruction. Subjective: Patient is doing well. No complaint. No nausea, no vomiting. Tolerating full liquid d iet and soft pureed diet. Passing flatus. No nausea, no vomiting at this time. No shortness of dennys ath, no chest pain. Review of Systems: Otherwise unremarkable. Physical Examination: Abdomen: Soft and depressible. Full range of motion. No guarding or rebound. Extremities: Full range of motion of the extremities. Laboratory Data: Blood work shows WBC count 10.8, hemoglobin of 9.6. Previous abdominal x-ray shows improvement of her condition. Plan: She feels better. She is passing flatus. She has no abdominal pain, no nausea, so she is goi ng to be home on pureed or full liquid diet until she sees me at the end of next week. From there we might suggest her to do the small-bowel series. We might even see if there is some indication for c olonoscopy to see if there is any narrow pointing that right lower quadrant causing this fecalization of the terminal ileum. She understands that. She is going to go home with those conditions and if she developed a lot of pain once again come back to the ER immediately. MIRELLA/JEROME Voice ID: [id number] Report ID: [id number]
[2020-01-29] MEDS ORDERED: levoFLOXacin 500 MG TAB PO SCH (17:00)
== END 2020-01-29 14:54 | disposition home or self-care (01) | DRG 389 ==
LOC: ER 14:12 → ERHOLD 18:12 → 2ND 20:58
PROVIDERS: ADMIT Family Medicine; ATTEND Family Medicine
DX: K56.699 Other intestinal obstruction unspecified as to partial versus complete obstruction (principal); N13.30 Unspecified hydronephrosis; K59.00 Constipation, unspecified; D50.9 Iron deficiency anemia, unspecified; Z11.59 Encounter for screening for other viral diseases; Z98.82 Breast implant status; Z88.0 Allergy status to penicillin
CPT/HCPCS: 36415; 74018; 74177; 76770; 80048; 80053; 80076; 81003; 81025; 83690; 83735; 84132; 84145; 85025; 87040; 96361; 96374; 96375; 99285; C9113; J0696; J1650; J2270; J2405; J2550; J3010; J3475; J7030; J7040; J7042; Q9967; U0002